=== PATIENT | female | born 1975 | race Caucasian/White ===

== ENCOUNTER 2021-12-13 23:37 | Emergency (ER) | payer SELFPAY ==
[~2021-12-13] VITALS: Ht 154.9 cm; Wt 58.2 kg
[2021-12-14] MEDS ORDERED: LORazepam 1 MG TABLET PO ONE (01:00)
[2021-12-14 01:25] VITALS: BP 138/95
[2021-12-14] MEDS ORDERED: HALOPERIDOL 5 MG TABLET PO ONE (01:30)
[2021-12-14] MEDS ORDERED: DiphenhydrAMINE HCL 25 MG CAPSULE PO ONE (01:30)
== END 2021-12-14 14:30 | disposition home or self-care (01) ==
LOC: EMS 23:41
DX: R45.1 Restlessness and agitation (principal); F20.9 Schizophrenia, unspecified; F17.210 Nicotine dependence, cigarettes, uncomplicated; F11.90 Opioid use, unspecified, uncomplicated; Z88.0 Allergy status to penicillin; Z88.6 Allergy status to analgesic agent
CPT/HCPCS: 99284